=== PATIENT | male | born 1945 | race African-American/Black ===

== ENCOUNTER 2018-11-13 02:52 | Emergency (ER) | payer OTHER ==
[2018-11-13 03:15] VITALS: BMI 24.3
--- NOTE | 2018-11-13 03:24 | PDOC ---
History of Present Illness - General Chief Complaint: Vomiting Blood Stated Complaint: VOMITING BLOOD Time Seen by Provider: 11/13/18 03:21 - History of Present Illness Initial Comments: 11/13/18 03:23 73 yo M with h/o asthma, HLD, who p/w hematemesis. Patient reports 2 episodes of bloody, non bilious emesis, now resolved beginning at 600PM 11-12-18. No identifiable triggers or alleviators. Endorses 1 week of lower, crampy abdominal pain, with no triggers or alleviators. Denies postrpanidal pain, BPR. Endorses 1 week of nausea. + Intractable hiccups beginning at 600 PM 11-12-18. Last BM 11-12-18 normal stool and bowel habits. Denies abdominal trauma. Patient denies ULLOA, vision loss, cough, hoarseness, wheezing, palpitations, leg pain/swelling, orthopnea, F,C, CP, SOB, urinary complaints, abdominal pain, diarrhea, constipation, BPR, hematuria, lightheadedness, weakness, sensory changes. PMHx: as noted above. Denies h/o abdominal surgery. H/o colonsocopy x 2 years ago,nml. Denies h/o chronic NSAID use or endoscopy. Surgical: Denies ROS: as noted SHx: Denies Etoh, tobacco, IVDA Allergies: NKDA Past History - Past Medical History Allergies/Adverse Reactions: Allergies Allergy/AdvReac Type Severity Reaction Status Date / Time No Known Allergies Allergy Verified 11/13/18 03:16 Home Medications: Ambulatory Orders Aspirin [ASA -] 81 mg PO DAILY 11/13/18 Atorvastatin Ca [Lipitor] 20 mg PO HS 11/13/18 - Suicide/Smoking/Psychosocial Hx Smoking History: Never smoked Have you smoked in the past 12 months: No Information on smoking cessation initiated: No Hx Alcohol Use: No Drug/Substance Use Hx: No Review of Systems - Review of Systems Comments:: 11/13/18 03:23 GENERAL/CONSTITUTIONAL: No fever or chills. No weakness. HEAD, EYES, EARS, NOSE AND THROAT: + Hematemesis. No change in vision. No ear pain or discharge. No sore throat. CARDIOVASCULAR: No chest pain or shortness of breath RESPIRATORY: No cough, wheezing, or hemoptysis. GASTROINTESTINAL: + Abdominal pain, nausea, vomiting. No diarrhea or constipation. GENITOURINARY: No dysuria, frequency, or change in urination. MUSCULOSKELETAL: No joint or muscle swelling or pain. No neck or back pain. SKIN: No rash NEUROLOGIC: No headache, vertigo, loss of consciousness, or change in strength/ sensation. ENDOCRINE: No increased thirst. No abnormal weight change HEMATOLOGIC/LYMPHATIC: No anemia, easy bleeding, or history of blood clots. ALLERGIC/IMMUNOLOGIC: No hives or skin allergy. *Physical Exam - Vital Signs Last Vital Signs Temp Pulse Resp BP Pulse Ox 97.7 F 75 15 128/85 97 11/13/18 02:52 11/13/18 02:52 11/13/18 02:52 11/13/18 02:52 11/13/18 02:52 - Physical Exam Comments: 11/13/18 03:23 GENERAL: Awake, alert, and fully oriented, in no acute distress HEAD: No signs of trauma, normocephalic, atraumatic EYES: PERRLA, EOMI, sclera anicteric, conjunctiva clear ENT: Hearing grossly normal, nares patent, oropharynx clear without exudates. Moist mucosa NECK: Normal ROM, supple, no lymphadenopathy, JVD, or masses LUNGS: No distress, speaks full sentences, clear to auscultation bilaterally HEART: Regular rate and rhythm, normal S1 and S2, no murmurs, rubs or gallops, peripheral pulses normal and equal bilaterally. ABDOMEN: + LLQ abdominal ttp. Soft, NDS, normoactive bowel sounds. No guarding , no rebound. No masses RECTAL: Rectal tone intact. No evidence of hemorrhoids or anal fissures. Neg gross blood. EXTREMITIES : Normal inspection, Normal range of motion, no edema. No clubbing or cyanosis. NEUROLOGICAL: Cranial nerves II through XII grossly intact. Normal speech, normal gait, no focal sensorimotor deficits SKIN: Warm, Dry, normal turgor, no rashes or lesions noted Moderate Sedation - Procedure Monitoring Vital Signs: Procedure Monitoring Vital Signs Temperature 97.7 F 11/13/18 02:52 Pulse Rate 75 11/13/18 02:52 Respiratory Rate 15 11/13/18 02:52 Blood Pressure 128/85 11/13/18 02:52 O2 Sat by Pulse Oximetry (%) 97 11/13/18 02:52 ED Treatment Course - LABORATORY CBC & Chemistry Diagram: 11/13/18 04:10 11/13/18 04:10 Medical Decision Making - Medical Decision Making 11/13/18 04:37 73 yo M with h/o asthma, HLD, who p/w hematemesis. VSS, AF, A&OX3. + LLQ abdominal pain/ttp. Will evaluate for UGI bleed. Patient airway intact, no evidence of resp compromise. Will consider PUD, esophagitis, gastritis, miguel kit, cirrhosis/variceal bleed, Ddx: diverticulitis, colitis, cystitis, nepohrolithiasis, mesenteric ischemia. Low suspicion AAA, Ao dissection, pyelonephritis. ED Course: CBC,CMP,PT/INR,T&S, FOBT, CARDIAC, UA EKG, CXR, CTAP TYLENOL, NS, Protonix, Zofran, Famotidine, maloox, carafate CBC,CMP: Unremarkable Trop: Neg 11/13/18 06:04 WBC: 11.9 FOBT: Neg 11/13/18 06:07 BUN/CR: 16/1.5 Have discussed risks and benefits of receiving IV contrast in patient. Patient agrees to consent for IV contrast 11/13/18 07:[address] AP results. Signed out to day team. *DC/Admit/Observation/Transfer Diagnosis at time of Disposition: Abdominal pain, left lower quadrant - Discharge Dispostion Condition at time of disposition: Fair - Referrals Referrals: Alfredo Byrnes [Primary Care Provider] - - Patient Instructions Printed Discharge Instructions: DI for Abdominal Pain-Adult Additional Instructions: Please return to the emergency department with any new or worsening symptoms or concerns. Please follow up with your primary care physician within 72 hours. - Post Discharge Activity - Attestations Physician Attestion: 11/13/18 03:24 I attest to the information provided in this note.
[2018-11-13] MEDS ORDERED: SODIUM CHLORIDE 1,000 ML IV STA (04:11)
[2018-11-13] MEDS ORDERED: ACETAMINOPHEN 1000 MG/100 ML VIAL (NON FORMULARY) IVPB ONE (04:11)
[2018-11-13] MEDS ORDERED: ACETAMINOPHEN INJECTION 100 ML IVPB ONE (04:24)
[2018-11-13 04:28] LABS: BASO % 0.1 % (0-2.0); EOS % 0.1 % (0-4.5); HEMATOCRIT 45.7 % (35.4-49); HEMOGLOBIN 15.7 GM/dL (11.7-16.9); LYMPH % 8.2 % (8-40); MCH 32.3 pg (25.7-33.7); MCHC 34.3 g/dl (32.0-35.9); MEAN CELL VOLUME 94.1 fl (80-96); MEAN PLT VOLUME 7.5 fl (7.5-11.1); MONO % 6.9 % (3.8-10.2); NEUT % 84.7 % (42.8-82.8); PLATELET COUNT 303 K/MM3 (134-434); RBC 4.85 M/mm3 (4.00-5.60); WHITE BLOOD COUNT 11.9 K/mm3 (4.0-10.0)
[2018-11-13 04:39] LABS: INR 1.08 (0.83-1.09); PROTHROMBIN TIME (PATIENT) 12.7 SEC (9.7-13.0)
--- NOTE | 2018-11-13 05:02 | PDOC ---
Attending Attestation - HPI HPI: 11/13/18 05:46 The patient is a 73 year old male, with a significant past medical history of asthma and HLD, who presents to the emergency department with, 2 episodes of hematemesis since 6pm 11/12. Patient also endorses intermittent left sided abdominal pain that he describes as crampy. He denies any recent fevers, chills, headache or dizziness. He denies any recent diarrhea or constipation. He denies any recent chest pain or shortness of breath. He denies any recent dysuria, frequency, urgency or hematuria. Allergies: NKDA Primary Care Physician: Dr. Byrnes <Forrest Schneider - Last Filed: 11/13/18 05:46> - Resident Resident Name: Prem Tracey - ED Attending Attestation I have performed the following: I have examined & evaluated the patient, The case was reviewed & discussed with the resident, I agree w/resident's findings & plan - Physicial Exam PE: 11/13/18 05:58 GENERAL: Awake, in no acute distress HEAD: No signs of trauma EYES: PERRLA, EOMI, sclera anicteric, conjunctiva clear, visual acuity grossly intact ENT: Auricles normal inspection, hearing grossly normal, nares patent, oropharynx clear without exudates. Moist mucosa NECK: Normal ROM, supple, no lymphadenopathy, JVD, or masses LUNGS: Breath sounds equal, clear to auscultation bilaterally. No wheezes, and no crackles. Normal work of breathing. HEART: Regular rate and rhythm, normal S1 and S2, no murmurs, rubs or gallops ABDOMEN: Soft, tenderness epigastric/left upper and lower quadrants with no guarding, abdomen nondistended, normoactive bowel sounds CHEST WALL: BACK: No midline tenderness. EXTREMITIES: Normal range of motion, no edema. No clubbing or cyanosis. No erythema, or tenderness NEUROLOGICAL: Alert, and fully oriented x4, Cranial nerves II through XII grossly intact. Normal speech, normal gait. DTRs 2/4 bilaterally. SKIN: Warm, Dry, normal turgor, no rashes or lesions noted. - Medical Decision Making 11/13/18 06:00 73-year-old male with abdominal pain and vomiting 2 EKG shows a normal sinus rhythm at 62 bpm with no acute ST elevations CT scan of the abdomen and pelvis is pending a Protonix, Pepcid, Carafate, Zofran and IV fluid normal saline given Plan for reevaluation pending imaging results <Brenda Flower - Last Filed: 11/13/18 06:06> Attestations - Attestations 11/13/18 05:47 Documentation prepared by Forrest Schneider, acting as emergency medical services coordinator for Brenda Flower DO. <Forrest Schneider - Last Filed: 11/13/18 05:46>
[2018-11-13 05:06] LABS: ALBUMIN 4.1 g/dl (3.4-5.0); ALK PHOS 71 U/L (45-117); ANION GAP 7 MMOL/L (8-16); BILIRUBIN,TOTAL 1.8 mg/dL (0.2-1); BLOOD UREA NITROGEN 16 mg/dL (7-18); CALCIUM 9.7 mg/dL (8.5-10.1); CHLORIDE 102 mmol/L (98-107); CO2 29 mmol/L (21-32); CREATININE 1.5 mg/dL (0.55-1.3); GLUCOSE,RANDOM 104 mg/dL (74-106); POTASSIUM 4.8 mmol/L (3.5-5.1); SGOT/AST 29 U/L (15-37); SGPT/ALT 28 U/L (13-61); SODIUM 138 mmol/L (136-145); TOT PROT 7.3 g/dl (6.4-8.2)
[2018-11-13] MEDS ORDERED: PANTOPRAZOLE SODIUM 40 MG VIAL IVPUSH ONE (05:41)
[2018-11-13] MEDS ORDERED: ONDANSETRON 4 MG/2 ML VIAL IVPB ONE (05:42)
[2018-11-13] MEDS ORDERED: ONDANSETRON 4 MG/2 ML VIAL ONE (05:54)
[2018-11-13] MEDS ORDERED: PANTOPRAZOLE SODIUM 40 MG VIAL ONE (05:54)
[2018-11-13] MEDS ORDERED: FAMOTIDINE 20 MG/50 ML IVPB 20 MG/50 ML MG IVPB ONE ×2 (06:04→06:46)
[2018-11-13] MEDS ORDERED: SUCRALFATE 1 GM TABLET (FP) PO ONE (06:07)
[2018-11-13] MEDS ORDERED: MAG HYDROX/AL HYDROX/SIMETH 30 ML UNIT-DOSE CUP PO ONE (06:07)
[2018-11-13] MEDS ORDERED: SUCRALFATE 1 GM TABLET (FP) ONE (06:45)
[2018-11-13] MEDS ORDERED: MAG HYDROX/AL HYDROX/SIMETH 30 ML UNIT-DOSE CUP ONE (06:46)
--- NOTE | 2018-11-13 08:25 | PDOC ---
*Physical Exam - Vital Signs Last Vital Signs Temp Pulse Resp BP Pulse Ox 98.8 F 72 18 140/95 97 11/13/18 06:48 11/13/18 06:48 11/13/18 06:48 11/13/18 06:48 11/13/18 06:48 ED Treatment Course - LABORATORY CBC & Chemistry Diagram: 11/13/18 04:10 11/13/18 04:10 - ADDITIONAL ORDERS Additional order review: Laboratory Results 11/13/18 11/13/18 11/13/18 04:52 04:10 04:10 PT with INR INR Sodium Potassium Chloride Carbon Dioxide Anion Gap BUN Creatinine Creat Clearance w eGFR Random Glucose Lactic Acid 2.1 H Calcium Total Bilirubin AST ALT Alkaline Phosphatase Creatine Kinase Creatine Kinase Index CK-MB (CK-2) Troponin I Total Protein Albumin Stool Occult Blood Negative Blood Type O POSITIVE Antibody Screen Negative 11/13/18 11/13/18 11/13/18 04:10 04:10 04:10 PT with INR 12.70 INR 1.08 Sodium 138 Potassium 4.8 Chloride 102 Carbon Dioxide 29 Anion Gap 7 L BUN 16 Creatinine 1.5 H Creat Clearance w eGFR 45.87 Random Glucose 104 Lactic Acid Calcium 9.7 Total Bilirubin 1.8 H AST 29 ALT 28 Alkaline Phosphatase 71 Creatine Kinase 177 Creatine Kinase Index 1.1 CK-MB (CK-2) 2.1 Troponin I < 0.02 Total Protein 7.3 Albumin 4.1 Stool Occult Blood Blood Type Antibody Screen 11/13/18 04:10 RBC 4.85 MCV 94.1 MCHC 34.3 RDW 13.0 MPV 7.5 Neutrophils % 84.7 H Lymphocytes % 8.2 Monocytes % 6.9 Eosinophils % 0.1 Basophils % 0.1 - Medications Given in the ED: ED Medications Discontinued Medications Generic Name Dose Route Start Last Admin Trade Name Freq PRN Reason Stop Dose Admin Acetaminophen 1,000 mg 11/13/18 04:11 11/13/18 04:33 Ofirmev Injection - IVPB 11/13/18 04:12 1,000 mg ONCE ONE Administration Al Hydroxide/Mg Hydroxide 30 ml 11/13/18 06:07 11/13/18 06:50 Mylanta Oral Suspension - PO 11/13/18 06:08 30 ml ONCE ONE Administration Sodium Chloride 1,000 mls @ 1,000 mls/hr 11/13/18 04:11 11/13/18 04:33 Normal Saline - IV 11/13/18 05:10 1,000 mls/hr ASDIR STA Administration Famotidine/Sodium Chloride 20 mg in 50 mls @ 100 mls/hr 11/13/18 06:04 06:50 Pepcid 20 Mg Premixed Ivpb - IVPB 11/13/18 06:33 100 mls/hr ONCE ONE Administration Ondansetron HCl 4 mg 11/13/18 05:42 11/13/18 06:02 Zofran Injection IVPB 11/13/18 05:43 4 mg ONCE ONE Administration Pantoprazole Sodium 40 mg 11/13/18 05:41 11/13/18 06:02 Protonix Iv IVPUSH 11/13/18 05:42 40 mg ONCE ONE Administration Sucralfate 1 gm 11/13/18 06:07 11/13/18 06:50 Carafate - PO 11/13/18 06:08 1 gm ONCE ONE Administration Medical Decision Making - Medical Decision Making 11/13/18 08:21 I received this patient on sign out Briefly, he presents to the ER with a complaint of hemetemesis and abdominal pain Upon arrival to the ER no additional episodes like this Guiaic negative Hgb 15 No h/o ulcer, diabetes, varices, liver disease Awaiting CT FINDINGS: Lung bases are clear. The visualized cardiac chambers are normal size and configuration. There is severe right renal atrophy with persistent mild functioning of the right kidney. No hydronephrosis. There is a 6 mm left adrenal nodule, possibly an adenoma, but too small to characterize. Normal liver, gallbladder, pancreas, spleen, adrenal glands and left kidney. The stomach is distended and inflamed which could indicate gastroparesis. The small bowel is normal. There is multifocal colonic diverticulosis without diverticulitis There is no aortic aneurysm. There is no significant retroperitoneal lymphadenopathy. Small fat containing umbilical hernia is noted. Appendix is normal. The urinary bladder is normal. The prostate gland is mildly enlarged. No pelvic free fluid is identified. There is no significant pelvic lymphadenopathy. IMPRESSION: Severe right renal atrophy is presumably chronic Tiny left adrenal nodule may be an adenoma but is too small to characterize. Diverticulosis without diverticulitis. Mild prostate enlargement. Possible gastroparesis. Pt po challeneged - tolerated this Will discharge to home I have discussed PROMPT follow up with PMD for referral to GI for endoscopy (pt follows up in [place]) I have also asked this patient to return to the ER IMMEDIATELY for recurrent symptoms Clinical impression: hemetemesis, initial presentation 11/13/18 08:25 *DC/Admit/Observation/Transfer Diagnosis at time of Disposition: Abdominal pain, left lower quadrant Vomiting Qualifiers: Vomiting type: unspecified Vomiting Intractability: non-intractable Nausea presence: with nausea Qualified Code(s): R11.2 - Nausea with vomiting, unspecified Hematemesis Qualifiers: Nausea presence: with nausea Qualified Code(s): K92.0 - Hematemesis - Discharge Dispostion Disposition: HOME Condition at time of disposition: Fair Decision to Admit order: No - Referrals Referrals: Alfredo Byrnes [Primary Care Provider] - - Patient Instructions Printed Discharge Instructions: DI for Abdominal Pain-Adult Additional Instructions: Mr. Yeager, Thank you for coming in to the ER today Please be sure to follow up with your primary care physician within 3-4 business days You should be referred for endoscopy Please review your labs and CT (reports given to you) Please return to the emergency department with any new or worsening symptoms or concerns. Please follow up with your primary care physician within 72 hours. - Post Discharge Activity
[2018-11-13 08:57] VITALS: BP 130/91; PULSE 75; TEMP 98
--- NOTE | 2018-11-13 09:55 | EKG ---
Test Reason : Blood Pressure : / mmHG Vent. Rate : 062 BPM Atrial Rate : 062 BPM P-R Int : 142 ms QRS Dur : 080 ms QT Int : 386 ms P-R-T Axes : 076 067 019 degrees QTc Int : 391 ms NORMAL SINUS RHYTHM POSSIBLE LEFT ATRIAL ENLARGEMENT NONSPECIFIC T WAVE ABNORMALITY ABNORMAL ECG NO PREVIOUS ECGS AVAILABLE Confirmed by MARCO DUKE, LANA ([id number]) on 11/13/2018 9:54:59 AM Referred By: Confirmed By:LANA LARA MD
== END 2018-11-13 08:54 | disposition home or self-care (01) ==
LOC: JER 02:52
PROC: 3E033NZ Introduction of Analgesics, Hypnotics, Sedatives into Peripheral Vein, Percutaneous Approach (ICD-10-PCS; principal; 2018-11-13)
PROC: 3E033GC Introduction of Other Therapeutic Substance into Peripheral Vein, Percutaneous Approach (ICD-10-PCS; 2018-11-13)
PROC: 3E0337Z Introduction of Electrolytic and Water Balance Substance into Peripheral Vein, Percutaneous Approach (ICD-10-PCS; 2018-11-13)
DX: R10.32 Left lower quadrant pain (principal); E78.5 Hyperlipidemia, unspecified; J45.909 Unspecified asthma, uncomplicated
CPT/HCPCS: 36415; 71045-TC-FY; 74177-TC; 80053; 82272; 82550; 82553; 83605; 84484; 85025; 85610; 86850; 86900; 86901; 93005; 93010; 96361; 96365; 96375; 99285-25; J0131; J7030